=== PATIENT | male | born 1955 | race Caucasian/White ===

== ENCOUNTER 2020-08-21 23:14 | Inpatient (IN) | payer MEDICARE, OTHER ==
[~2020-08-21] VITALS: Ht 188 cm; Wt 115.2 kg
[2020-08-21 23:57] LABS: HEMOGLOBIN 16.3 gm/dl (14.0-17.5); RED BLOOD COUNT 5.01 M/UL (4.20-5.50); WHITE BLOOD COUNT 22.7 K/UL (4.5-11.0)
[2020-08-22 00:14] LABS: BUN/CREATININE RATIO 16 (0-10)
[2020-08-22 06:40] LABS: HEMOGLOBIN 15.3 gm/dl (14.0-17.5); RED BLOOD COUNT 4.7 M/UL (4.20-5.50)
[2020-08-22] MEDS ORDERED: HYDROCODON-ACE1 EAC2 PO (10:49)
[2020-08-22] MEDS ORDERED: ASPIR-TRIN325 MG PO (10:49)
[2020-08-22] MEDS ORDERED: GABAPENTIN400 MG PO (10:49)
[2020-08-22] MEDS ORDERED: HYDROCHLOROTHIA25 MG PO (10:50)
[2020-08-22] MEDS ORDERED: COZAAR 50MG TAB50 MG PO (10:50)
[2020-08-22 13:47] LABS: ACINETOBACTER BAUMANNII Not Detected (Negative); CANDIDA ALBICANS Not Detected (Negative); CANDIDA KRUSEI Not Detected (Negative); CANDIDA TROPICALIS Not Detected (Negative); ENTEROCOCCUS Not Detected (Negative); HAEMOPHILUS INFLUENZAE Not Detected (Negative); KLEBSIELLA OXYTOCA Not Detected (Negative); KLEBSIELLA PNEUMONIAE Not Detected (Negative); KPC-CARBAPENEM-RESISTANCE GENE Not Detected (Negative); PROTEUS Not Detected (Negative); PSEUDOMONAS AERUGINOSA Not Detected (Negative); SERRATIA MARCESANS Not Detected (Negative); STAPHYLOCOCCUS Not Detected (Negative); STAPHYLOCOCCUS AUREUS Not Detected (Negative); STREP AGALACTIAE (GROUP B) Not Detected (Negative); STREP PYOGENES (GROUP A) Not Detected (Negative); STREPTOCOCCUS Not Detected (Negative); mecA (METHICILLIN RESIST GENE Not Detected (Negative); vanA/B (VANCOMYCIN RESIST GENE Not Detected (Negative)
[2020-08-22 15:00] LABS: ESCHERICHIA COLI DETECTED (Negative)
[2020-08-23 04:52] LABS: HEMOGLOBIN 14.1 gm/dl (14.0-17.5); RED BLOOD COUNT 4.4 M/UL (4.20-5.50)
[2020-08-23 04:53] LABS: WHITE BLOOD COUNT 11.7 K/UL (4.5-11.0)
[2020-08-24 05:08] LABS: HEMOGLOBIN 15.4 gm/dl (14.0-17.5); RED BLOOD COUNT 4.82 M/UL (4.20-5.50); WHITE BLOOD COUNT 7.9 K/UL (4.5-11.0)
[2020-08-25 02:57] LABS: WHITE BLOOD COUNT 7.5 K/UL (4.5-11.0)
[2020-08-25 02:58] LABS: HEMOGLOBIN 12.6 gm/dl (14.0-17.5); RED BLOOD COUNT 3.98 M/UL (4.20-5.50)
[2020-08-26 03:34] LABS: HEMOGLOBIN 12.5 gm/dl (14.0-17.5); RED BLOOD COUNT 4.11 M/UL (4.20-5.50)
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
== END 2020-08-26 21:10 | disposition left against medical advice (07) | DRG 871 ==
LOC: ER1 23:14 → CDU 08-22 03:39 → CCU 08-22 14:46 → PROG CARE 08-24 11:06 → MED SURG 4 08-26 20:09
PROVIDERS: Family Medicine; Internal Medicine; ADMIT Internal Medicine
DX: A41.51 Sepsis due to Escherichia coli [E. coli] (principal); R65.21 Severe sepsis with septic shock; N10 Acute pyelonephritis; N17.9 Acute kidney failure, unspecified; N13.30 Unspecified hydronephrosis; I48.91 Unspecified atrial fibrillation; I10 Essential (primary) hypertension; F15.10 Other stimulant abuse, uncomplicated; M54.9 Dorsalgia, unspecified; F19.10 Other psychoactive substance abuse, uncomplicated; Z20.822 Contact with and (suspected) exposure to COVID-19; Z66 Do not resuscitate; Z53.29 Procedure and treatment not carried out because of patient's decision for other reasons; E87.6 Hypokalemia; B96.20 Unspecified Escherichia coli [E. coli] as the cause of diseases classified elsewhere; Z72.0 Tobacco use; Z90.49 Acquired absence of other specified parts of digestive tract; Z83.3 Family history of diabetes mellitus; Z80.9 Family history of malignant neoplasm, unspecified
CPT/HCPCS: ECHO; 0240U; 36415; 71045; 71250; 76870; 80048; 80053; 80202; 80307; 81001; 82550; 82553; 82565; 83605; 83735; 83874; 83880; 84439; 84443; 84484; 85025; 85027; 85049; 85610; 87040; 87077; 87086; 87150; 87186; 93005; 93306; 94640; 94664; 94760; 96374; 96375; 97161; 99285; J0696; J1160; J1644; J1650; J2370; J2405; J2543; J3370; J7030; J7070

== ENCOUNTER 2020-10-16 22:59 | Inpatient (IN) | payer MEDICARE, OTHER ==
[~2020-10-16] VITALS: Ht 188 cm; Wt 112.5 kg
[~2020-10-16 22:59] MED LIST: ASPIR-TRIN325 MG PO; COZAAR 50MG TAB50 MG PO; GABAPENTIN400 MG PO; HYDROCHLOROTHIA25 MG PO; HYDROCODON-ACE1 EAC2 PO
[2020-10-16 23:50] LABS: HEMOGLOBIN 12.6 gm/dl (14.0-17.5); RED BLOOD COUNT 4.06 M/UL (4.20-5.50); WHITE BLOOD COUNT 11.6 K/UL (4.5-11.0)
[2020-10-17 00:19] LABS: BUN/CREATININE RATIO 14 (0-10)
[2020-10-18 03:22] LABS: HEMOGLOBIN 12.7 gm/dl (14.0-17.5); RED BLOOD COUNT 4.16 M/UL (4.20-5.50); WHITE BLOOD COUNT 11.7 K/UL (4.5-11.0)
[2020-10-19 03:02] LABS: HEMOGLOBIN 12.7 gm/dl (14.0-17.5); RED BLOOD COUNT 4.11 M/UL (4.20-5.50)
[2020-10-19] MEDS ORDERED: LOPRESSOR 25 MG25 MG PO (16:25)
[2020-10-19] MEDS ORDERED: CEFUROXIME500 MG PO ×2 (16:25→16:41)
[2020-10-19] MEDS ORDERED: FLOMAX 0.4 MG0.4 MG PO (16:41)
== END 2020-10-19 17:27 | disposition home or self-care (01) | DRG 683 ==
LOC: ER1 22:59 → CDU 10-17 01:31 → PROG CARE 10-17 01:31 → MED SURG 4 10-19 10:13
PROVIDERS: Internal Medicine; ADMIT Internal Medicine
DX: N17.9 Acute kidney failure, unspecified (principal); N30.00 Acute cystitis without hematuria; I48.19 Other persistent atrial fibrillation; Z20.822 Contact with and (suspected) exposure to COVID-19; E86.0 Dehydration; R55 Syncope and collapse; R79.89 Other specified abnormal findings of blood chemistry; N18.9 Chronic kidney disease, unspecified; N40.0 Benign prostatic hyperplasia without lower urinary tract symptoms; I12.9 Hypertensive chronic kidney disease with stage 1 through stage 4 chronic kidney disease, or unspecified chronic kidney disease; F19.10 Other psychoactive substance abuse, uncomplicated; F17.200 Nicotine dependence, unspecified, uncomplicated; E66.9 Obesity, unspecified; N18.30 Chronic kidney disease, stage 3 unspecified; G89.29 Other chronic pain; Z91.14 Patient's other noncompliance with medication regimen; Z79.891 Long term (current) use of opiate analgesic; Z90.49 Acquired absence of other specified parts of digestive tract; Z83.3 Family history of diabetes mellitus; Z68.30 Body mass index [BMI] 30.0-30.9, adult; Z80.1 Family history of malignant neoplasm of trachea, bronchus and lung; Z80.8 Family history of malignant neoplasm of other organs or systems; Z82.49 Family history of ischemic heart disease and other diseases of the circulatory system
CPT/HCPCS: 36415; 70450; 71045; 80053; 81001; 82140; 82550; 82553; 82565; 82607; 82746; 83036; 83874; 84439; 84443; 84484; 85025; 85027; 86140; 87040; 87086; 93005; 97161; 99285; J0696; J1335; J1644; J1650; J7030; U0002

== ENCOUNTER 2021-02-15 22:15 | Emergency (ER) | payer MEDICARE, OTHER, MEDICAID ==
[~2021-02-15 22:15] MED LIST changes: +CEFUROXIME500 MG PO; +FLOMAX 0.4 MG0.4 MG PO; +LOPRESSOR 25 MG25 MG PO
[2021-02-15] MEDS ORDERED: LODINE CAP 300300 MG PO (23:33)
[2021-02-15] MEDS ORDERED: NORFLEX 100 MG100 MG PO (23:33)
== END 2021-02-16 00:21 | disposition home or self-care (01) ==
LOC: ER1 22:15
DX: M54.42 Lumbago with sciatica, left side (principal); F17.210 Nicotine dependence, cigarettes, uncomplicated; Z90.49 Acquired absence of other specified parts of digestive tract
CPT/HCPCS: 96372; 99283; J1100; J2360

== ENCOUNTER 2021-03-18 17:47 | Emergency (ER) | payer MEDICARE, OTHER ==
[~2021-03-18 17:47] MED LIST changes: +LODINE CAP 300300 MG PO; +NORFLEX 100 MG100 MG PO
[2021-03-18 21:34] LABS: HEMOGLOBIN 14.8 gm/dl (14.0-17.5); RED BLOOD COUNT 4.78 M/UL (4.20-5.50)
[2021-03-18 22:28] LABS: BUN/CREATININE RATIO 14 (0-10)
== END 2021-03-18 23:30 | disposition home or self-care (01) ==
LOC: ER1 17:47
PROVIDERS: Physician Assistant
DX: S06.5X9A Traumatic subdural hemorrhage with loss of consciousness of unspecified duration, initial encounter (principal); S16.1XXA Strain of muscle, fascia and tendon at neck level, initial encounter; S00.81XA Abrasion of other part of head, initial encounter; M51.36 Other intervertebral disc degeneration, lumbar region; M54.42 Lumbago with sciatica, left side; I12.9 Hypertensive chronic kidney disease with stage 1 through stage 4 chronic kidney disease, or unspecified chronic kidney disease; N18.9 Chronic kidney disease, unspecified; F17.200 Nicotine dependence, unspecified, uncomplicated; I48.91 Unspecified atrial fibrillation; W01.10XA Fall on same level from slipping, tripping and stumbling with subsequent striking against unspecified object, initial encounter; Y92.009 Unspecified place in unspecified non-institutional (private) residence as the place of occurrence of the external cause
CPT/HCPCS: 70450; 72125; 72131; 80053; 80307; 81001; 82550; 82553; 83874; 84484; 85025; 85610; 85730; 96372; 99285; G0480; J1100

== ENCOUNTER 2021-04-03 20:28 | Emergency (ER) | payer MEDICARE, OTHER ==
[2021-04-03 21:40] LABS: HEMOGLOBIN 15.5 gm/dl (14.0-17.5); RED BLOOD COUNT 4.92 M/UL (4.20-5.50); WHITE BLOOD COUNT 11.5 K/UL (4.5-11.0)
[2021-04-04 01:02] LABS: HEMOGLOBIN 14.4 gm/dl (14.0-17.5); RED BLOOD COUNT 4.55 M/UL (4.20-5.50); WHITE BLOOD COUNT 11.2 K/UL (4.5-11.0)
[2021-04-04] MEDS ORDERED: PROTONIX40 MG PO (01:42)
== END 2021-04-04 02:00 | disposition home or self-care (01) ==
LOC: ER1 20:28
PROVIDERS: Physician Assistant Medical; Preventive Medicine Occupational Medicine
DX: K62.5 Hemorrhage of anus and rectum (principal)
CPT/HCPCS: 80053; 82270; 85025; 85610; 85652; 86140; 96374; 99284; C9113; Q9965